=== PATIENT | male | born 1995 | race African-American/Black ===

== ENCOUNTER 2019-08-14 08:10 | Emergency (ER) | payer BC ==
[2019-08-14 08:18] VITALS: BP 99/63; PULSE 69; TEMP 98.4; BMI 48.1
[2019-08-14] MEDS ORDERED: MAG HYDROX/AL HYDROX/SIMETH 30 ML UNIT-DOSE CUP PO ONE (08:34)
[2019-08-14] MEDS ORDERED: MAG HYDROX/AL HYDROX/SIMETH 30 ML UNIT-DOSE CUP ONE (08:38)
--- NOTE | 2019-08-14 09:00 | PDOC ---
History of Present Illness - General Chief Complaint: Pain, Acute Stated Complaint: ABD PAIN Time Seen by Provider: 08/14/19 08:24 History Source: Patient Exam Limitations: Clinical Condition - History of Present Illness Initial Comments: 08/14/19 09:00 Patient with no significant past medical history presented with complaint of 1 day history of left upper quadrant and flank pain since yesterday morning which started as mild and you have been persistent. Patient reports pain is localized to left flank area. Report one episode of spitting yesterday. Denies any other vomiting, fever, diarrhea or constipation. Report normal bowel movement daily and passing flatus. Patient did not take anything for symptoms. Denies history of abdominal surgery Is this a multiple visit Asthma Patient?: No Past History - Past Medical History Allergies/Adverse Reactions: Allergies Allergy/AdvReac Type Severity Reaction Status Date / Time No Known Allergies Allergy Verified 08/14/19 08:14 Home Medications: Ambulatory Orders Mag Hydrox/Aluminum Hyd/Simeth [Maalox Advanced Suspension] 30 ml PO Q8H PRN # 200 ml 08/14/19 COPD: No GI Disorders: No Lung CA: No - Surgical History Cholecystectomy: No - Immunization History Immunization Up to Date: No - Psycho Social/Smoking Cessation Hx Smoking History: Never smoked Have you smoked in the past 12 months: No Information on smoking cessation initiated: No Hx Alcohol Use: No Drug/Substance Use Hx: No Review of Systems - Review of Systems Able to Perform ROS?: Yes Is the patient limited [place] proficient: No Constitutional: No: Chills, Fever, Malaise HEENTM: No: Symptoms Reported, See HPI, Eye Pain, Blurred Vision, Tearing, Recent change in vision, Double Vision, Cataracts, Ear Pain, Ocular Prothesis, Ear Discharge, Nose Pain, Nose Congestion, Tinnitus, Nose Bleeding, Hearing Loss , Throat Pain, Throat Swelling, Mouth Pain, Dental Problems, Difficulty Swallowing, Mouth Swelling, Other Respiratory: No: Symptoms reported, See HPI, Cough, Orthopnea, Shortness of Breath, SOB with Exertion, SOB at Rest, Stridor, Wheezing, Productive cough, Hemoptysis, Other Cardiac (ROS): No: Symptoms Reported, See HPI, Chest Pain, Edema, Irregular Heart Rate, Lightheadedness, Palpitations, Syncope, Chest Tightness, Other ABD/GI: Yes: Symptoms Reported, See HPI, Abdominal cramping (left flank pain). No: Abd. Pain w/ defecation, Blood Streaked Bowels, Constipated, Difficulty Swallowing, Nausea, Poor Appetite, Rectal Bleeding, Vomiting, Indigestion : Yes: Symptoms Reported, Flank Pain (left flank). No: Burning, Dysuria, Discharge, Frequency, Hematuria, Incontinence, Urgency, Testicular Mass, Testicular Swelling, Testicular Pain Musculoskeletal: No: Symptoms Reported All Other Systems: Reviewed and Negative *Physical Exam - Vital Signs Last Vital Signs Temp Pulse Resp BP Pulse Ox 98.4 F 69 18 99/63 98 08/14/19 08:15 08/14/19 08:15 08/14/19 08:15 08/14/19 08:15 08/14/19 08:15 - Physical Exam Comments: 08/14/19 08:57 GENERAL: Well developed, well nourished. Awake and alert. No acute distress. HEENT: Normocephalic, atraumatic. PERRLA, EOMI. No conjunctival pallor. Sclera are non-icteric. Moist mucous membranes. Oropharynx is clear. NECK: Supple. Full ROM. CARDIOVASCULAR: Regular rate and rhythm. No murmurs, rubs, or gallops. Distal pulses are 2+ and symmetric. PULMONARY: No evidence of respiratory distress. Lungs clear to auscultation bilaterally. No wheezing, rales or rhonchi. ABDOMINAL: Soft. mild TTP LUQ/flank. Non-distended. No rebound or guarding. No organomegaly. hyperactive bowel sounds diffusely. MUSCULOSKELETAL Normal range of motion at all joints. SKIN: Warm and dry. Normal capillary refill. NEUROLOGICAL: Alert, awake, appropriate. Gait is normal without ataxia. PSYCHIATRIC: Cooperative. Good eye contact. Appropriate mood General Appearance: Yes: Nourished, Appropriately Dressed. No: Apparent Distress ED Treatment Course - RADIOLOGY Radiology Studies Ordered: Category Date Time Status SPIRAL- RENAL-STONE CT [CT] Stat CT Scan 08/14/19 08:34 Ordered - Medications Given in the ED: ED Medications Discontinued Medications Generic Name Dose Route Start Last Admin Trade Name Freq PRN Reason Stop Dose Admin Al Hydroxide/Mg Hydroxide 30 ml 08/14/19 08:34 08/14/19 08:45 Mylanta Oral Suspension - PO 08/14/19 08:35 30 ml ONCE ONE Administration Medical Decision Making - Medical Decision Making 08/14/19 09:02 Patient with no significant past medical history presented with complaint of 1 day history of left upper quadrant and flank pain since yesterday morning which started as mild and you have been persistent. Patient reports pain is localized to left flank area. Report one episode of spitting yesterday. Denies any other vomiting, fever, diarrhea or constipation. Report normal bowel movement daily and passing flatus. Patient did not take anything for symptoms. Denies history of abdominal surgery Exam significant for mild tenderness to left upper quadrant left flank area without guarding or rebound with increased bowel sounds diffusely. Otherwise normal exam. Symptoms likely gas pain versus less likely kidney stone versus less likely colitis. UA, urine culture lab ordered. Spiral CT ordered to rule out kidney stone. MiraLAX 30 mL p.o. given for possible gas pain 08/14/19 09:[address] unremarkable. Patient reported improved symptoms after Maalox. The patient symptoms likely gas pain and stable for discharge on Maalox as needed for discomfort with GI follow-up as needed. Patient stable for discharge Discharge - Discharge Information Problems reviewed: Yes Clinical Impression/Diagnosis: Abdominal pain in male Condition: Stable Disposition: HOME - Admission No - Additional Discharge Information Prescriptions: Mag Hydrox/Aluminum Hyd/Simeth [Maalox Advanced Suspension] 30 ml PO Q8H PRN # 200 ml PRN Reason: abdominal discomfort - Follow up/Referral Referrals: Ortiz Morales DO [Staff Physician] - - Patient Discharge Instructions Patient Printed Discharge Instructions: DI for Dyspepsia Additional Instructions: Your urine and abdominal CAT scan was normal. Your symptoms likely caused by gas pain. Take prescribed medication as needed for abdominal discomfort. Follow-up referred to GI doctor if symptoms persist for more than 3 days - Post Discharge Activity
[2019-08-14 09:14] LABS: PH,URINE >= 9.0 (5.0-8.0); URINE APPEARANCE CLEAR; URINE BILIRUBIN NEGATIVE (NEGATIVE); URINE COLOR YELLOW; URINE GLUCOSE (UA) NEGATIVE (NEGATIVE); URINE KETONE NEGATIVE (NEGATIVE); URINE LEUK ESTERASE NEGATIVE (NEGATIVE); URINE NITRITE NEGATIVE (NEGATIVE); URINE PROTEIN NEGATIVE (NEGATIVE)
--- NOTE | 2019-08-14 10:00 | PDOC ---
*Physical Exam - Vital Signs Last Vital Signs Temp Pulse Resp BP Pulse Ox 98.4 F 69 18 99/63 98 08/14/19 08:15 08/14/19 08:15 08/14/19 08:15 08/14/19 08:15 08/14/19 08:15 - Physical Exam Comments: 08/14/19 09:57 vss well appearing, ambulating no jaundice/pallor, mmm s1s2 rrr, ctab soft/nt/nd bs nl. no guarding/rebound. no cvat no edema ED Treatment Course - ADDITIONAL ORDERS Additional order review: Laboratory Results 08/14/19 08:43 Urine Color Yellow Urine Appearance Clear Urine pH >= 9.0 H Ur Specific [place] 1.020 Urine Protein Negative Urine Glucose (UA) Negative Urine Ketones Negative Urine Blood Negative Urine Nitrite Negative Urine Bilirubin Negative Urine Urobilinogen 1.0 Ur Leukocyte Esterase Negative - Medications Given in the ED: ED Medications Discontinued Medications Generic Name Dose Route Start Last Admin Trade Name Freq PRN Reason Stop Dose Admin Al Hydroxide/Mg Hydroxide 30 ml 08/14/19 08:34 08/14/19 08:45 Mylanta Oral Suspension - PO 08/14/19 08:35 30 ml ONCE ONE Administration Medical Decision Making - Medical Decision Making 08/14/19 09:58 Patient seen and evaluated with the nurse practitioner. I agree with the overall evaluation, assessment, and management with the following summary of visit: 23-year-old healthy male presents with epigastric/left upper quadrant discomfort since yesterday, no associated nausea/anorexia/vomiting/diarrhea, no chest pain or dyspnea or palpitations, no fevers or chills. No diet change, no recent sick contacts or antibiotics, no travel. Does not use excessive alcohol or NSAIDs, no history of GI issues. Currently status post Maalox with resolution of his symptoms, asking for discharge. Benign exam. Urinalysis and CAT scan performed for renal colic are normal Presentation seems most consistent with dyspepsia, given Maalox with relief. No indications for emergent further evaluation or management, recommend diet modification and Maalox/Pepcid as needed, GI follow-up, understands return criteria. Discharge - Discharge Information Clinical Impression/Diagnosis: Abdominal pain in male Condition: Stable Disposition: HOME - Additional Discharge Information Prescriptions: Mag Hydrox/Aluminum Hyd/Simeth [Maalox Advanced Suspension] 30 ml PO Q8H PRN # 200 ml PRN Reason: abdominal discomfort - Follow up/Referral Referrals: Ortiz Morales DO [Staff Physician] - - Patient Discharge Instructions Patient Printed Discharge Instructions: DI for Dyspepsia Additional Instructions: Your urine and abdominal CAT scan was normal. Your symptoms likely caused by gas pain. Take prescribed medication as needed for abdominal discomfort. Follow-up referred to GI doctor if symptoms persist for more than 3 days - Post Discharge Activity
== END 2019-08-14 10:30 | disposition home or self-care (01) ==
LOC: JER 08:10
DX: R10.12 Left upper quadrant pain (principal)
CPT/HCPCS: 36415; 74176-TC; 81003; 87086; 87491; 87591; 99282-25